=== PATIENT | male | born 1945 | race Caucasian/White ===

== ENCOUNTER → 2017-02-25 | Outpatient (CLI) | payer BC, OTHER ==
[2017-02-24 13:16] LABS: BASO % 0.5 %; BASO ABS # 0.04 K/uL (0-0.2); COMPLETE YES; EOS % 2.7 %; IG% 0.1 %; LYMPH % 28.4 %; LYMPH ABS # 2.21 K/uL (1.2-3.4); MEAN CELL VOLUME 93.5 fL (80-100); MEAN CORPUSCULAR HEMOGLOBIN 30.6 pg (25-34); MEAN CORPUSCULAR HGB CONC 32.8 g/dl (32-36); MEAN PLATELET VOLUME 10.6 fL (7.4-10.4); MONO % 9.1 %; NEUT % 59.2 %; PLATELET COUNT 192 K/uL (130-400); RED BLOOD COUNT 4.28 M/uL (4.7-6.1); WHITE BLOOD COUNT 7.78 K/uL (4.8-10.8)
[2017-02-24 13:59] LABS: RATIO 14.7 mcg/mg (0-30.0)
[2017-02-24 14:11] LABS: ESTIMATED AVERAGE GLUCOSE 157 mg/dl; HA1C FLAG Normal (Normal)
[2017-02-24 15:28] LABS: ALB/GLOB RATIO 1.3 (0.9-2); ALKALINE PHOSPHATASE 86 U/L (45-117); ALT/SGPT 18 U/L (12-78); AST/SGOT 14 U/L (15-37); BLOOD UREA NITROGEN 42 mg/dl (7-18); BUN/CREATININE RATIO 16.8 (10-20); CALCIUM 9.2 mg/dl (8.5-10.1); CARBON DIOXIDE 28 mmol/L (21-32); CHLORIDE 109 mmol/L (98-107); CHOLESTEROL 195 mg/dl (0-200); CHOLESTEROL/HDL RATIO 6.7; GLUCOSE 162 mg/dl (70-99); HDL CHOLESTEROL 29 mg/dl; LDL CHOLESTEROL CALCULATED 102 mg/dl; POTASSIUM 4.6 mmol/L (3.5-5.1); SODIUM 144 mmol/L (136-145); TRIGLYCERIDES 322 mg/dl (0-150); VERY LOW DENSITY LIPOPROT CALC 64 mg/dl
== END | disposition home or self-care (01) ==
LOC: C.LABMFLN 08:15
PROVIDERS: ATTEND Physician Assistant
DX: E11.9 Type 2 diabetes mellitus without complications (principal); I10 Essential (primary) hypertension; E66.01 Morbid (severe) obesity due to excess calories; E78.5 Hyperlipidemia, unspecified

== ENCOUNTER → 2017-04-07 | Outpatient (CLI) | payer BC ==
--- NOTE | 2017-04-11 13:53 | CODING QUERY MEDICAL NECESSITY ---
SUPPORTING DIAGNOSIS NEEDED A supporting diagnosis is required for the test/procedure performed on this patient in order for us to be reimbursed by the patient's insurance. Please provide a supporting diagnosis for the following test/procedure listed below next to the test name along with your signature. *If there is no additional diagnosis for this patient that would support the following test/procedure please document that below next to the test/procedure. Test(s)/Procedure(s) that require a supporting diagnosis: * PSA DIAGNOSIS: Provider Signature: Date: Thank you Italia Savage [employer] Once completed, please kindly fax back to [phone] For questions please call [phone]
== END | disposition home or self-care (01) ==
LOC: C.LABMFLN 14:28
PROVIDERS: ATTEND Physician Assistant
DX: R30.0 Dysuria (principal); N40.1 Benign prostatic hyperplasia with lower urinary tract symptoms; R32 Unspecified urinary incontinence

== ENCOUNTER → 2017-04-09 | Outpatient (CLI) | payer BC | END | disposition home or self-care (01) | LOC: C.LABMFLN 09:43 | PROVIDERS: ATTEND Physician Assistant | DX: R30.0 Dysuria (principal) ==